=== PATIENT | male | born 1955 | race Caucasian/White ===

== ENCOUNTER 2020-11-04 10:52 | Outpatient (CLI) | payer MEDICARE, SELFPAY ==
[2020-11-04 11:33] LABS: Basophils Absolute Auto 0.1 K/mm3 (0.0-0.1); Basophils Percent Auto 1.1 % (0.2-1.2); Eosinophils Absolute Auto 0.2 K/mm3 (0-0.3); Eosinophils Percent Auto 2.8 % (0-4.4); Hematocrit 46.3 % (42.0-52.0); Hemoglobin 15.2 g/dL (14.0-18.0); Immature Granulocyte Absolute 0.02 K/mm3 (0.00-0.031); Immature Granulocyte Percent A 0.3 % (0-0.5); Lymphocytes Absolute Auto 1.38 K/mm3 (0.9-3.2); Lymphocytes Percent Auto 21.3 % (18.3-44.2); Mean Corpuscular HGB Conc 32.8 g/dl (32-36); Mean Corpuscular Hemoglobin 32.3 pg (26-34); Mean Corpuscular Volume 98.3 fl (80-100); Mean Platelet Volume 11.2 fl (7.4-10.4); Monocytes Absolute Auto 0.7 K/mm3 (0.1-0.6); Neutrophils Absolute Auto 4.1 K/mm3 (1.3-6.7); Neutrophils Percent Auto 63.5 % (45.5-73.1); Platelet Count Result 165 k/mm3 (150-375); Red Blood Count 4.71 M/mm3 (4.6-6.20); Red Cell Distribution Width 14.3 % (11.5-14.5); White Blood Count 6.5 K/mm3 (4.5-10.0)
[2020-11-04 11:42] LABS: Alanine Aminotransferase 32 U/L (4-50); Albumin Level 4.7 g/dL (3.5-5.1); Alkaline Phosphatase 64 U/L (38-126); Anion Gap 8 mmol/L (8-16); Aspartate Amino Transferase 31 U/L (17-59); Blood Urea Nitrogen 26 mg/dL (9-20); Calcium 9.6 mg/dL (8.4-10.2); Carbon Dioxide 29 mmol/L (22-30); Chloride 106 mmol/L (98-107); Cholesterol 114 mg/dL (0-200); Estimated Glomerular Filt Rate 41; Glucose 98 mg/dL (75-110); HDL Direct 35 mg/dL; Potassium 4.7 mmol/L (3.4-5.0); Sodium 143 mmol/L (137-145); Triglycerides 92 mg/dL (<150); Uric Acid 7.8 mg/dL (3.5-8.5)
[2020-11-04 11:53] LABS: LDL Cholesterol Direct 56 mg/dL
[2020-11-04 12:13] LABS: Prostate Specific Antigen 1.7 ng/mL (< OR = 4.0)
== END 2020-11-04 10:53 | disposition home or self-care (01) ==
PROVIDERS: PCP Family Medicine; Visit Provider Family Medicine
DX: E78.5 Hyperlipidemia, unspecified (principal); I10 Essential (primary) hypertension; Z12.5 Encounter for screening for malignant neoplasm of prostate; M10.00 Idiopathic gout, unspecified site
CPT/HCPCS: 36415; 80053; 80061; 84153; 84443; 84550; 85025; G0103

== ENCOUNTER 2021-04-06 11:00 | Outpatient (CLI) | payer MEDICARE, SELFPAY ==
[2021-04-06 11:43] LABS: Albumin Level 4.7 g/dL (3.5-5.1); Anion Gap 7 mmol/L (8-16); Blood Urea Nitrogen 23 mg/dL (9-20); Calcium 9.5 mg/dL (8.4-10.2); Carbon Dioxide 26 mmol/L (22-30); Chloride 106 mmol/L (98-107); Estimated Glomerular Filt Rate 40; Glucose 93 mg/dL (75-110); Phosphorus 3.7 mg/dL (2.5-4.5); Potassium 4.5 mmol/L (3.4-5.0); Sodium 139 mmol/L (137-145)
== END 2021-04-06 11:01 | disposition home or self-care (01) ==
LOC: ANHLAB 11:03
PROVIDERS: PCP Family Medicine
DX: N00.9 Acute nephritic syndrome with unspecified morphologic changes (principal)
CPT/HCPCS: 36415; 80069; 83735

== ENCOUNTER 2022-04-28 09:31 | Outpatient (CLI) | payer MEDICARE, SELFPAY ==
[2022-04-28 10:18] LABS: Basophils Absolute Auto 0.1 K/mm3 (0.0-0.1); Eosinophils Absolute Auto 0.2 K/mm3 (0-0.3); Eosinophils Percent Auto 3.6 % (0-4.4); Hematocrit 38.3 % (42.0-52.0); Hemoglobin 12.4 g/dL (14.0-18.0); Immature Granulocyte Absolute 0.01 K/mm3 (0.00-0.031); Immature Granulocyte Percent A 0.2 % (0-0.5); Lymphocytes Absolute Auto 1.15 K/mm3 (0.9-3.2); Lymphocytes Percent Auto 19.7 % (18.3-44.2); Mean Corpuscular HGB Conc 32.4 g/dl (32-36); Mean Corpuscular Hemoglobin 31.9 pg (26-34); Mean Corpuscular Volume 98.5 fl (80-100); Monocytes Absolute Auto 0.6 K/mm3 (0.1-0.6); Neutrophils Absolute Auto 3.8 K/mm3 (1.3-6.7); Neutrophils Percent Auto 64.5 % (45.5-73.1); Platelet Count Result 150 k/mm3 (150-375); Red Blood Count 3.89 M/mm3 (4.6-6.20); White Blood Count 5.8 K/mm3 (4.5-10.0)
[2022-04-28 10:26] LABS: Alanine Aminotransferase 27 U/L (6-50); Albumin Level 4.2 g/dL (3.5-5.1); Alkaline Phosphatase 60 U/L (38-126); Anion Gap 10 mmol/L (8-16); Aspartate Amino Transferase 29 U/L (17-59); Bilirubin,Total 0.8 mg/dL (0.2-1.3); Blood Urea Nitrogen 28 mg/dL (9-20); Calcium 9.2 mg/dL (8.4-10.2); Carbon Dioxide 24 mmol/L (22-30); Chloride 106 mmol/L (98-107); Cholesterol 80 mg/dL (0-200); Estimated Glomerular Filt Rate 43; Glucose 101 mg/dL (65-110); HDL Direct 26 mg/dL; Sodium 140 mmol/L (137-145); Triglycerides 50 mg/dL (<150)
[2022-04-28 10:37] LABS: LDL Cholesterol Direct 34 mg/dL
[2022-04-28 10:56] LABS: Prostate Specific Antigen 1.7 ng/mL (< OR = 4.0)
[2022-04-28 12:21] LABS: Vitamin D 25 Hydroxy 34.7 ng/mL
== END 2022-04-28 09:32 | disposition home or self-care (01) ==
LOC: ANHLAB 09:33
PROVIDERS: PCP Family Medicine; Visit Provider Family Medicine
DX: Z12.5 Encounter for screening for malignant neoplasm of prostate (principal); I11.0 Hypertensive heart disease with heart failure; E78.5 Hyperlipidemia, unspecified; E55.9 Vitamin D deficiency, unspecified; Z00.00 Encounter for general adult medical examination without abnormal findings
CPT/HCPCS: 36415; 80053; 80061; 82306; 84153; 84443; 85025; 85055; G0103

== ENCOUNTER 2023-01-17 10:48 | Outpatient (CLI) | payer MEDICARE, SELFPAY ==
[2023-01-17 11:28] LABS: Basophils Absolute Auto 0.1 K/mm3 (0.0-0.1); Basophils Percent Auto 1.1 % (0.2-1.2); Eosinophils Absolute Auto 0.2 K/mm3 (0-0.3); Eosinophils Percent Auto 2.7 % (0-4.4); Hematocrit 42.6 % (42.0-52.0); Hemoglobin 13.8 g/dL (14.0-18.0); Immature Granulocyte Absolute 0.02 K/mm3 (0.00-0.031); Immature Granulocyte Percent A 0.3 % (0-0.5); Lymphocytes Absolute Auto 1.21 K/mm3 (0.9-3.2); Mean Corpuscular HGB Conc 32.4 g/dl (32-36); Mean Corpuscular Hemoglobin 32.7 pg (26-34); Mean Corpuscular Volume 100.9 fl (80-100); Mean Platelet Volume 11.5 fl (7.4-10.4); Monocytes Absolute Auto 0.8 K/mm3 (0.1-0.6); Monocytes Percent Auto 10.6 % (2.6-8.5); Neutrophils Absolute Auto 4.9 K/mm3 (1.3-6.7); Neutrophils Percent Auto 68.3 % (45.5-73.1); Platelet Count Result 174 k/mm3 (150-375); Red Blood Count 4.22 M/mm3 (4.6-6.20); Red Cell Distribution Width 15.2 % (11.5-14.5); White Blood Count 7.1 K/mm3 (4.5-10.0)
[2023-01-17 11:35] LABS: Alanine Aminotransferase 46 U/L (6-50); Albumin Level 4.5 g/dL (3.5-5.1); Alkaline Phosphatase 75 U/L (38-126); Anion Gap 5 mmol/L (8-16); Aspartate Amino Transferase 34 U/L (17-59); Bilirubin,Total 1.3 mg/dL (0.2-1.3); Blood Urea Nitrogen 23 mg/dL (9-20); Calcium 9.2 mg/dL (8.4-10.2); Carbon Dioxide 29 mmol/L (22-30); Chloride 105 mmol/L (98-107); Cholesterol 112 mg/dL (0-200); Estimated Glomerular Filt Rate 43; Glucose 100 mg/dL (65-110); HDL Direct 27 mg/dL; Potassium 5.1 mmol/L (3.4-5.0); Sodium 139 mmol/L (137-145); Triglycerides 130 mg/dL (<150); Uric Acid 6.3 mg/dL (3.5-8.5)
[2023-01-17 11:46] LABS: LDL Cholesterol Direct 55 mg/dL
[2023-01-17 12:04] LABS: Prostate Specific Antigen 1.9 ng/mL (< OR = 4.0)
[2023-01-17 12:26] LABS: Vitamin D 25 Hydroxy 26.4 ng/mL
== END 2023-01-17 10:49 | disposition home or self-care (01) ==
LOC: ANHLAB 10:49
PROVIDERS: PCP Family Medicine; Visit Provider Family Medicine
DX: M10.00 Idiopathic gout, unspecified site (principal); E78.5 Hyperlipidemia, unspecified; Z12.5 Encounter for screening for malignant neoplasm of prostate; N18.31 Chronic kidney disease, stage 3a; I12.9 Hypertensive chronic kidney disease with stage 1 through stage 4 chronic kidney disease, or unspecified chronic kidney disease; E53.8 Deficiency of other specified B group vitamins; E55.9 Vitamin D deficiency, unspecified
CPT/HCPCS: 36415; 80053; 80061; 82306; 82607; 84153; 84443; 84550; 85025; G0103

== ENCOUNTER 2024-02-15 11:24 | Outpatient (CLI) | payer MEDICARE, SELFPAY ==
[2024-02-15 12:48] LABS: Hemoglobin 14.3 g/dL (14.0-18.0); Mean Corpuscular HGB Conc 32.5 g/dl (32-36); Mean Corpuscular Hemoglobin 32.2 pg (26-34); Mean Corpuscular Volume 99.1 fl (80-100); Mean Platelet Volume 12.1 fl (7.4-10.4); Platelet Count Result 170 k/mm3 (150-375); Red Blood Count 4.44 M/mm3 (4.6-6.20); Red Cell Distribution Width 14.4 % (11.5-14.5)
[2024-02-15 13:04] LABS: Alanine Aminotransferase 33 U/L (6-50); Albumin Level 4.6 g/dL (3.5-5.1); Alkaline Phosphatase 73 U/L (38-126); Anion Gap 8 mmol/L (4-12); Aspartate Amino Transferase 30 U/L (17-59); Bilirubin,Total 1.4 mg/dL (0.2-1.3); Blood Urea Nitrogen 20 mg/dL (9-20); Calcium 9.3 mg/dL (8.4-10.2); Carbon Dioxide 25 mmol/L (22-30); Chloride 109 mmol/L (98-107); Cholesterol 98 mg/dL (0-200); Estimated Glomerular Filt Rate 40; Glucose 89 mg/dL (65-110); HDL Direct 31 mg/dL; Potassium 4.1 mmol/L (3.4-5.0); Sodium 142 mmol/L (137-145); Triglycerides 91 mg/dL (<150)
[2024-02-15 13:15] LABS: LDL Cholesterol Direct 56 mg/dL
[2024-02-15 13:19] LABS: Vitamin D 25 Hydroxy 32.6 ng/mL
[2024-02-15 13:34] LABS: Prostate Specific Antigen 1.9 ng/mL (< OR = 4.0)
[2024-02-15 13:52] LABS: Hepatitis C Virus Antibody Negative (Negative)
== END 2024-02-15 11:25 | disposition home or self-care (01) ==
LOC: ANHLAB 11:25
PROVIDERS: PCP Family Medicine; Visit Provider Nurse Practitioner
DX: Z12.5 Encounter for screening for malignant neoplasm of prostate (principal); I50.9 Heart failure, unspecified; Z11.59 Encounter for screening for other viral diseases; E55.9 Vitamin D deficiency, unspecified
CPT/HCPCS: 36415; 80053; 80061; 82306; 84153; 84443; 85027; 86803; G0103

== ENCOUNTER 2025-02-13 08:39 | Outpatient (CLI) | payer MEDICARE, SELFPAY ==
--- OUTSIDE RECORDS SUMMARY | 2025-02-13 08:42 | XMS_ITS | Clinical Summary ---
Author Organization [facility] [place] [address] Address [address] [place] [address] Care Team Providers Care T[employer] Shop Manager Name Role Phone Fausto Díaz MD Primary Care Provider Allergies Active Allergy Reactions Criticality Noted Date Comments Penicillins Unknown Low Medications allopurinoL (ZYLOPRIM) 300 mg tablet Take 1 tablet (300 mg total) by mouth daily Active aspirin 81 mg enteric coated tablet Take 1 tablet (81 mg total) by mouth daily 30 tablet 11 11/03/2021 Active lisinopriL (PRINIVIL,ZESTRI L) 20 mg tablet Take 1 tablet (20 mg total) by mouth daily 02/14/2024 Active empagliflozin (Jardiance) 10 mg tablet Take 1 tablet (10 mg total) by mouth daily 30 tablet 11 03/20/2024 Active atorvastatin (LIPITOR) 40 mg tablet TAKE 1 TABLET EVERY DAY 90 tablet 3 05/02/2024 Active carvediloL (COREG) 6.25 mg tablet Take 1 tablet (6.25 mg total) by mouth 2 (two) times a day with meals 180 tablet 3 12/19/2024 Active Active Problems Problem Noted Date Diagnosed Date Automatic implantable cardiac defibrillator in s itu 11/03/2021 Overview (11/03/2021): Medtronic Dual ICD. Dx; ICM, PMVT, Afib. DOI 10/15/2014-[place]. [facility] remote monitoring. Renal insufficiency 11/12/2014 Overview (12/31/2016): Renal insufficiency History of coronary artery bypass surgery 2014 Overview (12/31/2016): S/P CABG x 3 History of heart valve repair 11/12/2014 Overview (12/31/2016): Status post mitral valve annuloplasty Atrial fibrillation 11/12/2014 Overview (12/31/2016): Atrial fibrillation Chronic coronary artery disease 09/05/2014 Mitral valve insufficiency 09/05/2014 Encounters Date Type Department Care Team Description 01/15/2025 8:45 AM CDT Ancillary Procedure [facility] [address] [place] [id number] Atrial fibrillation, unspecified type (HCC) (Primary Dx); Automatic implantable cardiac defibrillator in situ; Cardiomyopathy, ischemic from Last 3 Months Medical History Medical History Date Comments Hypertension Hypertension Family History Medical History Relation Name Comments Heart attack Brother Myocardial infa rction; Heart attack Father Myocardial infa rction; Cause of : Myocardial infarction Stroke Mother Stroke; Cause o f : Stroke Relation Name Status Comments Brother Father (Age 66) Mother (Age 79) Social History Tobacco Use Types Packs/Day Years Used Date Smoking Tobacco: Never Smokeless Tobacco: Never Tobacco Cessation:Counseling Given: Not Answered Alcohol Use Standard Drinks/Week Comments Yes 0 (1 standard drink = 0.6 oz pur e alcohol) Sex and Gender Information Value Date Recorded Sex Assigned at Not on file Legal Sex Male 8:56 PM [employer] Gender Identity Not on file Sexual Orientation Not on file Obstetrics History Last Filed Vital Signs Vital Sign Reading Time Taken Comments Blood Pressure 128/70 03/20/2024 10:25 AM CDT Pulse 64 03/20/2024 10:25 AM CDT Temperature - - Respiratory Rate - - Oxygen Saturation 96% 03/20/2024 10: 25 AM CDT Inhaled Oxygen Concentration - - Weight 112.3 kg (247 lb 9.6 oz) 024 10:25 AM CDT Height 180.3 cm (5' 11 ) 03/20/2024 10: 25 AM CDT Body Mass Index 34.53 03/20/2024 10:25 AM CDT Plan of Treatment Health Maintenance Due Date Last Done Comments Colon Cancer Screening-Colonoscopy 1954 Depression Screening 1954 Fall Risk Assessment 1955 Hepatitis C Screening 1954 DTaP/Tdap/Td Vaccine (1 - Tdap) 1965 Hepatitis B Screening 02/23/1972 Pneumococcal vaccine 65+ (1 of 2 - PCV) 1973 Zoster Vaccine (1 of 2) 02/23/2004 Well Visit 65+ 2019 Covid-19 Vaccine ( - season) 2024 10/04/2021, 12/29/2020, 12/01/2020 Influenza Vaccine (Season Ended) 2025 Procedures Procedure Name Priority Date/Time Associated Diagnosis Comments DEVICE CHECK - REMOTE Routine 01/15/2025 9:31 AM CDT Automatic implantable cardiac defibrillator in situ Cardiomyopathy, ischemic from Last 3 Months Results * DEVICE CHECK - REMOTE (01/15/2025 9:31 AM CDT) Anatomical Region Laterality Modality Other Narrative 01/17/2025 10:34 AM CDT Medtronic Dual ICD. Dx; ICM, PMVT, Afib. DOI 10/15/2014-[place]. [facility] remote monitoring. Routine AAI <> DDD ICD Remote. Transmission attached. Battery status 2.81 V, 3 months remaining battery life to LUZ. Stable Charge time and Shock impedance. Stable lead impedances, pacing, and sensing threshold. Presenting rhythm: /VS AP-16.0 %, DENTAL SURGERY DOCTOR-< 0.1 % (0) AT/AF episodes noted. (0) Ventricular tachy arrhythmias detected. Medication: ASA 81 mg, carvedilol 6.25 mg, lisinopril 20 mg Follow up: Office Pacemaker/ICD scheduled 04/23/25 [facility] remote 02/19/25 to assess battery status Jose Israel, RN He Sheets MD [facility] PROCEDURES F inal Result from Last 3 Months Insurance Care Teams Tire Shop Manager Relationship Specialty Start Date End Date Fausto Díaz MD PCP - General Family Practice 08/23/17
--- OUTSIDE RECORDS SUMMARY | 2025-02-13 08:42 | XMS_ITS | CONTINUITY OF CARE DOCUMENT ---
Author Name tino jiménez Address Unknown Organization [facility] Address [id number] [place] [address] [address] [place] [address] Phone [phone] Care Team Providers Care Plastic Sheets Supervisor Name Role Phone Hannah PAIGE, Malena Unavailable SANFORD SANTANA MD Unavailable [phone] Fausto Díaz MD Unavailable PROBLEMS Condition Status Date Provider Notes Status post DC AICD placement; Medtronic active 10/15 Tara Christy RN Cardiac arrest active Tara Christy RN Ventricular tachycardia, polymorphic/sustained active Tara Christy RN CAD - s/p artery bypass grafting & MVR active Tara Christy RN Cardiomyopathy, ischemic active Tara Cotto Family History of CVA or Stroke: active ? Edwar Morales DO ENCOUNTERS Date Type Provider Location Encounter Diagnosis - In-person encounter Office Visit Malena Young MD [facility] Office - In-person encounter Office Visit Jeremias Morales DO [facility] Office - In-person encounter Office Visit Jeremias Morales DO [facility] Office - In-person encounter Office Visit Jeremias Morales DO [facility] Office - In-person encounter Office Visit Jeremias Morales DO [facility] Office - In-person encounter Office Visit Jeremias Morales DO [facility] Family History of CVA or Stroke: VITAL SIGNS Date Observation Value Provider Body Mass Index (Ratio) 37.02 kg/m2 Mireya vann Tam blood pressure, diastolic 78 mm[Hg] Rosa nkLogic blood pressure, systolic 138 mm[Hg] Dora kLogic blood pressure, cuff size large Veto rri Teresitaseemaer blood pressure, diastolic 78 mm[Hg] Veto rri Alexandrenechantalelder blood pressure, systolic 138 mm[Hg] Kristi ri [facility] oxygen saturation, oximetry 95 % Anila Schroederryleechantalcora pulse rate 64 /min Anila Parekh [facility] respiratory rate E&M 18 /min Anila Saab jerrod weight E&M 258 [lb_av] Anila Ramirezwei [facility] height E&M 70 [in_i] Anila Alexandrekarolinajesús [facility] Body Mass Index (Ratio) 36.01 kg/m2 Curtis Watkins blood pressure, diastolic 62 mm[Hg] Ma rsha O'Yannick blood pressure, systolic 130 mm[Hg] Mar julianne O'Yannick blood pressure, resting Yes [facility] O'Yannick oxygen saturation, oximetry 97 % Ameena O'Yannick respiratory rate E&M 16 /min Ameean O'Yannick pulse rate 72 /min Ameena O'Yannick weight E&M 251 [lb_av] Ameena O'Yannick height E&M 70 [in_i] Ameena O'Yannick Body Mass Index (Ratio) 36.73 kg/m2 Curtis Watkins blood pressure, diastolic 82 mm[Hg] Rh ismael Rondon blood pressure, systolic 118 mm[Hg] Rho nda Nela blood pressure, cuff size regular Rh ismael Rondon oxygen saturation, oximetry 98 % Michelle Rondon respiratory rate E&M 18 /min Michelle Nela pulse rate 71 /min Michelle Nela weight E&M 256 [lb_av] Michelle Nela height E&M 70 [in_i] Michelle Nela Body Mass Index (Ratio) 36.15 kg/m2 Jackie Shah NP blood pressure, cuff size large Rh ismael Nela blood pressure, diastolic 79 mm[Hg] Rh ismael Nela blood pressure, systolic 125 mm[Hg] Rho poncho Nela oxygen saturation, oximetry 96 % Michelle Nela pulse rate 67 /min Michellefrederick Rondon weight E&M 252 [lb_av] Michelle Nela height E&M 70 [in_i] Michellefrederick Rondon Body Mass Index (Ratio) 36.44 kg/m2 Jackie Shah NP blood pressure, cuff size regular Evelynlobo Fuentes blood pressure, diastolic 80 mm[Hg] Britt Fuentes blood pressure, systolic 122 mm[Hg] Romeo Fuentes oxygen saturation, oximetry 95 % Nisha Fuentes respiratory rate E&M 16 /min Nisha Fuentes pulse rate 64 /min Nisha Fuentes weight E&M 254 [lb_av] Nisha Fuentes height E&M 70 [in_i] Nisha Fuentes blood pressure, diastolic 70 mm[Hg] Andrae Fierro blood pressure, systolic 114 mm[Hg] Isaiah Fierro pulse rate 81 /min Coby Fierro oxygen saturation, oximetry 98 % Coby Fierro respiratory rate E&M 16 /min Coby Fierro Body Mass Index (Ratio) 33.72 kg/m2 Kain Fierro weight E&M 235 [lb_av] Coby Fierro height E&M 70 [in_i] Coby Fierro ALLERGIES Allergy Name Onset Date Reaction Criticality Status PCN. High Criticality active HISTORY OF MEDICATION USE Medication Status Instructions Dates Provider Indications Com ments Colcrys 0.6 mg tablet active 1 tablet by mouth twice a day as needed Ameena Sosa #60, 30 days supply, Filled 06/30/2020 COLCHICINE 0.6 MG ORAL CAPSULE completed take one tab po bid - Michelle Rondon allopurinol 300 mg tablet active Take 1 tablet by mouth once a day Coby Fierro lisinopril 20 mg tablet active 1 tablet by mouth once a day Ameena Sosa AMIODARONE HCL 200 MG ORAL TABLET completed ONE TAB. DAILY - Coby Fierro SPIRONOLACTONE 25 MG ORAL TABLET completed ONE TAB. DAILY - Coby Fierro FUROSEMIDE 40 MG ORAL TABLET completed once daily - Michelle Rondon carvedilol 6.25 mg tablet active 1 tablet by mouth twice a day Ameena Sosa atorvastatin 20 mg tablet active 1 tablet by mouth once a day Ameena Sosa aspirin 325 mg tablet active 1 tablet by mouth once a day Nela Ludwig SOCIAL HISTORY Date Observation Value Provider social history reviewed E&M revi ewed - no changes required Malena Young MD smoking status Never smoker Anila fernandes social history E&M S moking History: P [place] has never smoked. Jeremias Morales DO social history reviewed E&M revi ewed - no changes required Jeremias Morales DO smoking status Never smoker Jeremias huff DO smoking status Never smoker Jeremias huff DO social history E&M S moking History: P atient has never smoked. Jeremias Morales DO social history reviewed E&M revi ewed - no changes required Jeremias Morales DO smoking status Never smoker Michelle Rondon number of grandchildren Jeremias Morales Baldemar O Howie Shah NP smoking status Never smoker Nisha Fuentes social history E&M S moking History: Bill ramirez has never smoked. Jeremias Morales DO social history reviewed E&M revi ewed - no changes required Jeremias Morales DO smoking status Never smoker Coby Fierro FUNCTIONAL STATUS Date Observation Value Provider HRA, CV Assess/Plan, Angina (inactive) Management Plan continue current therapy Jeremias Morales HRA, CV Assess/Plan, Angina (inactive) Management Plan continue current therapy Jeremias Morales HRA, CV Assess/Plan, Angina (inactive) Management Plan continue current therapy Howie Shah NP HRA, CV Assess/Plan, Angina (inactive) Management Plan continue current therapy Howie Shah NP FAMILY HISTORY Family Member Condition Father Family History of Co ronary Artery Disease: Mother Family History of Di abetes: Mother Family History of CV A or Stroke: INSURANCE PROVIDERS Payer name Policy type / Coverage type Person [facility] republican ID [employer] GOLD PLUS O O [id number] ADVANCE DIRECTIVES Name Date DISCUSSED - NO DECISION MADE TREATMENT PLAN Date Name Performer [id number], H is updated medication list for this problem includes: Lisinopril 20 Mg Oral Tablet (Lisinopril) ..... One tab. daily Carvedilol 6.25 Mg Oral Tablet (Carvedilol) ..... One tab. twice daily Aspirin 325 Mg Oral Tablet (Aspirin) ..... One tab. daily Orders: E KG (CPT-51994) 9 9215 HIGH 40-54min (CPT-92651) S chedule Followup (*) Malena Young MD [id number],B, H is updated medication list for this problem includes: Lisinopril 20 Mg Oral Tablet (Lisinopril) ..... One tab. daily Carvedilol 6.25 Mg Oral Tablet (Carvedilol) ..... One tab. twice daily Aspirin 325 Mg Oral Tablet (Aspirin) ..... One tab. daily Orders: 9 9215 HIGH 40-54min (CPT-98860) S chedule Followup (*) Malena Young MD Electrophysiology: H is updated medication list for this problem includes: Lisinopril 20 Mg Oral Tablet (Lisinopril) ..... One tab. daily Carvedilol 6.25 Mg Oral Tablet (Carvedilol) ..... One tab. twice daily Aspirin 325 Mg Oral Tablet (Aspirin) ..... One tab. daily Orders: E KG (CPT-26128) 9 9215 HIGH 40-54min (CPT-51215) S chedule Followup (*) Malena Young MD Electrophysiology: H is updated medication list for this problem includes: Lisinopril 20 Mg Oral Tablet (Lisinopril) ..... One tab. daily Carvedilol 6.25 Mg Oral Tablet (Carvedilol) ..... One tab. twice daily Aspirin 325 Mg Oral Tablet (Aspirin) ..... One tab. daily Orders: 9 9215 HIGH 40-54min (CPT-65760) S chedule Followup (*) Malena Young MD Electrophysiology: F ollowed by Dr Santana s /p ICD [facility] Electrophysiology: S /P ICD 2014 n o recurent arrhythmia. N o shocks. [facility] Electrophysiology:no rmal function [facility] Electrophysiology:s/ p dc icd n o shocks/ therapies, palps, or tachycardia. [facility] Electrophysiology:no rmal function [facility] Electrophysiology:Fo llowed by Dr Santana s /p ICD [facility] Electrophysiology:S/ P ICD 2014 n o recurent arrhythmia. N o shocks. [facility] Electrophysiology: p er Dr Kortney Denise [facility] Electrophysiology:s/p dc icd Nabila Shah PRE SALES TECHNICAL ENGINEER Electrophysiology: n ormal function Howie Shah PRE SALES TECHNICAL ENGINEER Electrophysiology - [facility] letter sent: p er Dr Kortney Dahled Pablo PRE SALES TECHNICAL ENGINEER Electrophysiology - [facility] letter sent:normal function Howie Shah PRE SALES TECHNICAL ENGINEER EP:per Dr Kortney Morales DO EP:normal function, no vt Jeremias Morales DO EP:S/P ICD n o recurent arrhythmia. Jeremias Morales DO HISTORY OF PROCEDURES Procedure Date Procedure Name Provider Procedure Notes S tatus Schedule Followup Malena gordon MD fu in 12 months completed EKG Malena chaidez MD completed EKG Jeremias Morales DO completed EKG Jeremias Kleberg completed ICM Interrogation, Remote (Prof) Jeremias Kleberg DO INTERROGATION EVAL REMOTE </30 D CV MNTR SYS completed AICD Interrogation, Remote (Tech) Jeremias Kleberg DO INTERROGATION REMOTE </90 D HEALTH EDITOR REVIEW completed AICD Interrogation, Remote (Prof) Jeremias Kleberg DO INTERROGATION EVAL REMOTE </90 D 1/2/> LD CVDFB completed ICM Interrogation, Remote (Prof) Jeremias Kleberg DO INTERROGATION EVAL REMOTE </30 D CV MNTR SYS completed AICD Interrogation, Remote (Tech) Jeremias Kleberg DO INTERROGATION REMOTE </90 D HEALTH EDITOR REVIEW completed AICD Interrogation, Remote (Prof) Jeremias Kleberg DO INTERROGATION EVAL REMOTE </90 D 1/2/> LD CVDFB completed ICM Interrogation, Remote (Prof) Jeremias Kleberg DO INTERROGATION EVAL REMOTE </30 D CV MNTR SYS completed ICM Interrogation, Remote (Tech) Jeremias Kleberg DO INTERROGATION EVAL REMOTE </30 D TECH REVIEW completed ICM Interrogation, Remote (Prof) Jeremias Kleberg DO INTERROGATION EVAL REMOTE </30 D CV MNTR SYS completed ICM Interrogation, Remote (Tech) Jeremias Kleberg DO INTERROGATION EVAL REMOTE </30 D TECH REVIEW completed ICM Interrogation, Remote (Prof) Jeremias Kleberg DO INTERROGATION EVAL REMOTE </30 D CV MNTR SYS completed AICD Interrogation, Remote (Tech) Jeremias Kleberg DO INTERROGATION REMOTE </90 D HEALTH EDITOR REVIEW completed AICD Interrogation, Remote (Prof) Jeremias Kleberg DO INTERROGATION EVAL REMOTE </90 D 1/2/> LD CVDFB completed ICM Interrogation, Remote (Prof) Jeremias Kleberg DO INTERROGATION EVAL REMOTE </30 D CV MNTR SYS completed ICM Interrogation, Remote (Tech) Jeremias Kleberg DO INTERROGATION EVAL REMOTE </30 D TECH REVIEW completed ICM Interrogation, Remote (Prof) Jeremias Kleberg DO INTERROGATION EVAL REMOTE </30 D CV MNTR SYS completed ICM Interrogation, Remote (Tech) Jeremias Kleberg DO INTERROGATION EVAL REMOTE </30 D TECH REVIEW completed ICM Interrogation, Remote (Prof) Jeremias Kleberg DO INTERROGATION EVAL REMOTE </30 D CV MNTR SYS completed AICD Interrogation, Remote (Tech) Jeremias Kleberg DO INTERROGATION REMOTE </90 D HEALTH EDITOR REVIEW completed AICD Interrogation, Remote (Prof) Jeremias Kleberg DO INTERROGATION EVAL REMOTE </90 D 1/2/> LD CVDFB completed ICM Interrogation, Remote (Prof) Jeremias Kleberg DO INTERROGATION EVAL REMOTE </30 D CV MNTR SYS completed ICM Interrogation, Remote (Tech) Jeremias Kleberg DO INTERROGATION EVAL REMOTE </30 D TECH REVIEW completed ICM Interrogation, Remote (Prof) Jeremias Kleberg DO INTERROGATION EVAL REMOTE </30 D CV MNTR SYS completed ICM Interrogation, Remote (Tech) Jeremias Kleberg DO INTERROGATION EVAL REMOTE </30 D TECH REVIEW completed Schedule ICD Check Jeremias Tamaroa ck DO completed Schedule Followup Jeremias Glascoc k DO completed EKG Howie Hu PRE SALES TECHNICAL ENGINEER completed ICM Interrogation, Remote (Prof) Jeremias Kleberg DO INTERROGATION EVAL REMOTE </30 D CV MNTR SYS completed ICM Interrogation, Remote (Tech) Jeremias Kleberg DO INTERROGATION EVAL REMOTE </30 D TECH REVIEW completed ICM Interrogation, Remote (Prof) Jeremias Kleberg DO INTERROGATION EVAL REMOTE </30 D CV MNTR SYS completed AICD Interrogation, Remote (Tech) Jeremias Kleberg DO INTERROGATION REMOTE </90 D HEALTH EDITOR REVIEW completed AICD Interrogation, Remote (Prof) Jeremias Kleberg DO INTERROGATION EVAL REMOTE </90 D 1/2/> LD CVDFB completed ICM Interrogation, Remote (Prof) Jeremias Kleberg DO INTERROGATION EVAL REMOTE </30 D CV MNTR SYS completed ICM Interrogation, Remote (Tech) Jeremias Kleberg DO INTERROGATION EVAL REMOTE </30 D TECH REVIEW completed ICM Interrogation, Remote (Prof) Jeremias Kleberg DO INTERROGATION EVAL REMOTE </30 D CV MNTR SYS completed ICM Interrogation, Remote (Tech) Jeremias Kleberg DO INTERROGATION EVAL REMOTE </30 D TECH REVIEW completed ICM Interrogation, Remote (Prof) Jeremias Kleberg DO INTERROGATION EVAL REMOTE </30 D CV MNTR SYS completed AICD Interrogation, Remote (Tech) Jeremias Kleberg DO INTERROGATION REMOTE </90 D HEALTH EDITOR REVIEW completed AICD Interrogation, Remote (Prof) Jeremias Kleberg DO INTERROGATION EVAL REMOTE </90 D 1/2/> LD CVDFB completed ICM Interrogation, Remote (Prof) Jeremias Kleberg DO INTERROGATION EVAL REMOTE </30 D CV MNTR SYS completed ICM Interrogation, Remote (Tech) Jeremias Kleberg DO INTERROGATION EVAL REMOTE </30 D TECH REVIEW completed ICM Interrogation, Remote (Prof) Jeremias Kleberg DO INTERROGATION EVAL REMOTE </30 D CV MNTR SYS completed ICM Interrogation, Remote (Tech) Jeremias Kleberg DO INTERROGATION EVAL REMOTE </30 D TECH REVIEW completed ICM Interrogation, Remote (Prof) Jeremias Kleberg DO INTERROGATION EVAL REMOTE </30 D CV MNTR SYS completed AICD Interrogation, Remote (Tech) Jeremias Kleberg DO INTERROGATION REMOTE </90 D HEALTH EDITOR REVIEW completed AICD Interrogation, Remote (Prof) Jeremias Kleberg DO INTERROGATION EVAL REMOTE </90 D 1/2/> LD CVDFB completed ICM Interrogation, Remote (Prof) Jeremias Kleberg DO INTERROGATION EVAL REMOTE </30 D CV MNTR SYS completed ICM Interrogation, Remote (Tech) Jeremias Kleberg DO INTERROGATION EVAL REMOTE </30 D TECH REVIEW completed ICM Interrogation, Remote (Prof) Jeremias Kleberg DO INTERROGATION EVAL REMOTE </30 D CV MNTR SYS completed ICM Interrogation, Remote (Tech) Jeremias Kleberg DO INTERROGATION EVAL REMOTE </30 D TECH REVIEW completed Schedule ICD Check Jeremias Sonido ck DO completed Schedule Followup Jeremias Glascoc k DO completed EKG Jeremias Kleberg DO completed SNOMED-CT: [id number] Current Medications Documented Jeremias Kleberg DO completed ICM Interrogation, Remote (Prof) Jeremias Kleberg DO INTERROGATION EVAL REMOTE </30 D CV MNTR SYS completed ICM Interrogation, Remote (Tech) Jeremias Kleberg DO INTERROGATION EVAL REMOTE </30 D TECH REVIEW completed ICM Interrogation, Remote (Prof) Jeremias Kleberg DO INTERROGATION EVAL REMOTE </30 D CV MNTR SYS completed ICM Interrogation, Remote (Tech) Jeremias Kleberg DO INTERROGATION EVAL REMOTE </30 D TECH REVIEW completed ICM Interrogation, Remote (Prof) Jeremias Kleberg DO INTERROGATION EVAL REMOTE </30 D CV MNTR SYS completed AICD Interrogation, Remote (Tech) Jeremias Kleberg DO INTERROGATION REMOTE </90 D HEALTH EDITOR REVIEW completed AICD Interrogation, Remote (Prof) Jeremias Kleberg DO INTERROGATION EVAL REMOTE </90 D 1/2/> LD CVDFB completed ICM Interrogation, Remote (Prof) Jeremias Kleberg DO INTERROGATION EVAL REMOTE </30 D CV MNTR SYS completed ICM Interrogation, Remote (Tech) Jeremias Kleberg DO INTERROGATION EVAL REMOTE </30 D TECH REVIEW completed ICM Interrogation, Remote (Prof) Jeremias Kleberg DO INTERROGATION EVAL REMOTE </30 D CV MNTR SYS completed ICM Interrogation, Remote (Tech) Jeremias Kleberg DO INTERROGATION EVAL REMOTE </30 D TECH REVIEW completed ICM Interrogation, Remote (Prof) Jeremias Kleberg DO INTERROGATION EVAL REMOTE </30 D CV MNTR SYS completed AICD Interrogation, Remote (Tech) Jeremias Kleberg DO INTERROGATION REMOTE </90 D HEALTH EDITOR REVIEW completed AICD Interrogation, Remote (Prof) Jeremias Kleberg DO INTERROGATION EVAL REMOTE </90 D 1/2/> LD CVDFB completed ICM Interrogation, Remote (Prof) Jeremias Kleberg DO INTERROGATION EVAL REMOTE </30 D CV MNTR SYS completed ICM Interrogation, Remote (Tech) Jeremias Kleberg DO INTERROGATION EVAL REMOTE </30 D TECH REVIEW completed ICM Interrogation, Remote (Prof) Jeremias Kleberg DO INTERROGATION EVAL REMOTE </30 D CV MNTR SYS completed ICM Interrogation, Remote (Tech) Jeremias Kleberg DO INTERROGATION EVAL REMOTE </30 D TECH REVIEW completed ICM Interrogation, Remote (Prof) Jeremias Kleberg DO INTERROGATION EVAL REMOTE </30 D CV MNTR SYS completed AICD Interrogation, Remote (Tech) Jeremias Kleberg DO INTERROGATION REMOTE </90 D HEALTH EDITOR REVIEW completed AICD Interrogation, Remote (Prof) Jeremias Kleberg DO INTERROGATION EVAL REMOTE </90 D 1/2/> LD CVDFB completed ICM Interrogation, Remote (Prof) Jeremias Kleberg DO INTERROGATION EVAL REMOTE </30 D CV MNTR SYS completed ICM Interrogation, Remote (Tech) Jeremias Kleberg DO INTERROGATION EVAL REMOTE </30 D TECH REVIEW completed ICM Interrogation, Remote (Prof) Jeremias Kleberg DO INTERROGATION EVAL REMOTE </30 D CV MNTR SYS completed ICM Interrogation, Remote (Tech) Jeremias Kleberg DO INTERROGATION EVAL REMOTE </30 D TECH REVIEW completed EKG Jeremias Kleberg DO completed SNOMED-CT: [id number] Current Medications Documented Jeremias Kleberg DO completed ICM Interrogation, Remote (Prof) Jeremias Kleberg DO INTERROGATION EVAL REMOTE </30 D CV MNTR SYS completed AICD Interrogation, Remote (Tech) Jeremias Kleberg DO INTERROGATION REMOTE </90 D HEALTH EDITOR REVIEW completed AICD Interrogation, Remote (Prof) Jeremias Kleberg DO INTERROGATION EVAL REMOTE </90 D 1/2/> LD CVDFB completed ICM Interrogation, Remote (Prof) Jeremias Kleberg DO INTERROGATION EVAL REMOTE </30 D CV MNTR SYS completed ICM Interrogation, Remote (Tech) Jeremias Kleberg DO INTERROGATION EVAL REMOTE </30 D TECH REVIEW completed ICM Interrogation, Remote (Prof) Jeremias Kleberg DO INTERROGATION EVAL REMOTE </30 D CV MNTR SYS completed ICM Interrogation, Remote (Tech) Jeremias Kleberg DO INTERROGATION EVAL REMOTE </30 D TECH REVIEW completed ICM Interrogation, Remote (Prof) Jeremias Kleberg DO INTERROGATION EVAL REMOTE </30 D CV MNTR SYS completed AICD Interrogation, Remote (Tech) Jeremias Morales DO INTERROGATION REMOTE </90 D HEALTH EDITOR REVIEW completed AICD Interrogation, Remote (Prof) Jeremias Leoscock DO INTERROGATION EVAL REMOTE </90 D 1/2/> LD CVDFB completed ICM Interrogation, Remote (Prof) Jeremias Headck DO INTERROGATION EVAL REMOTE </30 D CV MNTR SYS completed ICM Interrogation, Remote (Tech) Jeremias Headck DO INTERROGATION EVAL REMOTE </30 D TECH REVIEW completed ICM Interrogation, Remote (Prof) Jeremias Headck DO INTERROGATION EVAL REMOTE </30 D CV MNTR SYS completed ICM Interrogation, Remote (Tech) Jeremias Leoscock DO INTERROGATION EVAL REMOTE </30 D TECH REVIEW completed
--- OUTSIDE RECORDS SUMMARY | 2025-02-13 08:42 | XMS_ITS | Referral Summary ---
Author Organization [facility] [address] Address [address] [place] [address] Care Team Providers Care Director Process Improvement Name Role Phone Fausto Díaz MD Primary Care Provider Encounters Date Type Department Care Team Description 01/15/2025 8:45 AM CDT Ancillary Procedure [facility] Cardiology [address] [place] [id number] Atrial fibrillation, unspecified type (HCC) (Primary Dx); Automatic implantable cardiac defibrillator in situ; Cardiomyopathy, ischemic from Last 3 Months Allergies Active Allergy Reactions Criticality Noted Date [...] Dual ICD. Dx; ICM, PMVT, Afib. DOI 10/15/2014-[place]ascock. [place] remote monitoring. Renal insufficiency 11/12/2014 Overview (12/31/2016): Renal insufficiency History of coronary artery bypass surgery 2014 Overview (12/31/2016): S/P CABG x 3 History of heart valve repair 11/12/2014 Overview (12/31/2016): Status post mitral valve annuloplasty Atrial fibrillation 11/12/2014 Overview (12/31/2016): Atrial fibrillation Chronic coronary artery disease 09/05/2014 Mitral valve insufficiency 09/05/2014 Social History Tobacco Use Types Packs/Day Years Used Date Smoking Tobacco: Never Smokeless Tobacco: Never Tobacco Cessation:Counseling Given: Not Answered Alcohol Use Standard Drinks/Week Comments Yes 0 (1 standard drink = 0.6 oz pur e alcohol) Sex and Gender Information Value Date Recorded Sex Assigned at Not on file 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 Dx; ICM, PMVT, Afib. DOI 10/15/2014-Carmen. [facility] remote monitoring. Routine AAI <> DDD ICD Remote. Transmission attached. Battery status 2.81 V, 3 months remaining battery life to LUZ. Stable Charge time and Shock impedance. Stable lead impedances, pacing, and sensing threshold. Presenting rhythm: /VS AP-16.0 %, VP PROJECT-< 0.1 % (0) AT/AF episodes noted. (0) Ventricular tachy arrhythmias detected. Medication: ASA 81 mg, carvedilol 6.25 mg, lisinopril 20 mg Follow up: Office Pacemaker/ICD scheduled 04/23/25 [facility] remote 02/19/25 to assess battery status Jose Israel RN He Sheets MD [facility] CARDIAC SERVICES PROCEDURES F inal Result from Last 3 Months Insurance [email or web address] MEDICARE O [employer] MEDICARE HMO Care Teams Director Process Improvement Relationship Specialty Start Date End Date Fausto Díaz MD PCP - General Family Practice 08/23/17
--- OUTSIDE RECORDS SUMMARY | 2025-02-13 08:42 | XMS_ITS | Patient Health Record ---
Author Organization [facility] Address [address] [place], [place] [id number] Care Team Providers Care Assistance Coordinator Name Role Phone shanel asha Primary Care Provider Tej espinosa Rex Garvey Unavailable [phone] Allergies Allergen (clinical drug ingredient) Drug/Non Drug Allergy documented on EMR Reaction Allergy Type Onset Date Status penicillin Unknown Drug Allergy Active Reason For Referral No Information Medications Medication SIG (Take, Route, Frequency, Duration) Notes Start Date End Date Status Aspirin 81 81 MG 1 tablet Orally Once a day for 30 day(s) Active Atorvastatin Calcium 40 MG 1 tablet Orally Once a day Active Coreg 6.25 MG 1 tablet with food Orally Twice a day Active Lisinopril 20 MG 1 tablet Orally Once a day Active Allopurinol 300 MG 1 tablet Orally Once a day Active Aspirin 325 MG 1 tablet Orally Once a day Not-Taking Colchicine 0.6 MG Orally as needed No t-Taking Furosemide 40 MG 1 tablet Orally Once a day Not-Taking Naproxen 250 MG 1 tablet Orally ever y day Not-Taking Problems Problem Type SNOMED Code ICD Code Onset Dates Problem Status W/U Status Risk Notes Problem 81786167 Essential (primary) hypertension (401.9) Active confirmed Low Problem 897058168 Acute renal insufficiency (N28.9) Active confirmed Problem Pulmonary hypertension (00878455) Pulmonary hypertension (I27.2) Active confirmed Problem 357902393 Obesity (E66.9) Active confirmed Problem 65925411 Cardiovascular disease (I25.10) Active confirmed Low Problem 15624122 Acute nephritis NOS (N00.9) Active confirmed Low Plan Of Treatment Pending Test Test Name Order Date Renal Panel (10) 04/10/2020 Renal Panel (10) 05/04/2022 Magnesium 05/04/2022 Magnesium 04/10/2020 Magnesium 11/02/2018 Magnesium 04/01/2016 Magnesium 09/30/2016 Magnesium 09/29/2017 Renal Panel 11/02/2018 Renal Panel 09/29/2017 Renal Panel 09/30/2016 Renal Panel 11/26/2014 Renal Panel 04/01/2016 Insurance Providers Payer Name Payer Address Payer Phone Subscriber Number Group Number Insured Name Patient Relationship to Insured Coverage Start Date Coverage End Date [employer] [address] [address] [place] [phone] [id number] Tae Angulo Self - patient is the insured Medical (General) History Medical History History ICD Code HTN CAD EF 40-45% Pulm HTN obesity Surgical History Surgery Date(Month/Year) CABG
[2025-02-13 09:03] LABS: Basophils Absolute Auto 0.1 K/mm3 (0.0-0.1); Basophils Percent Auto 1.1 % (0.2-1.2); Eosinophils Absolute Auto 0.2 K/mm3 (0-0.3); Eosinophils Percent Auto 2.9 % (0-4.4); Hematocrit 41.5 % (42.0-52.0); Hemoglobin 13.5 g/dL (14.0-18.0); Immature Granulocyte Absolute 0.01 K/mm3 (0.00-0.031); Immature Granulocyte Percent A 0.2 % (0-0.5); Lymphocytes Absolute Auto 1.17 K/mm3 (0.9-3.2); Lymphocytes Percent Auto 18.5 % (18.3-44.2); Mean Corpuscular HGB Conc 32.5 g/dl (32-36); Mean Corpuscular Hemoglobin 32.1 pg (26-34); Mean Corpuscular Volume 98.6 fl (80-100); Mean Platelet Volume 11.7 fl (7.4-10.4); Monocytes Absolute Auto 0.7 K/mm3 (0.1-0.6); Monocytes Percent Auto 10.8 % (2.6-8.5); Neutrophils Absolute Auto 4.2 K/mm3 (1.3-6.7); Neutrophils Percent Auto 66.5 % (45.5-73.1); Platelet Count Result 147 k/mm3 (150-375); Red Blood Count 4.21 M/mm3 (4.6-6.20); Red Cell Distribution Width 15.1 % (11.5-14.5); White Blood Count 6.3 K/mm3 (4.5-10.0)
[2025-02-13 09:23] LABS: Hemoglobin A1C 5.5 % (<5.7)
[2025-02-13 09:48] LABS: Alanine Aminotransferase 36 U/L (6-50); Albumin Level 4.4 g/dL (3.5-5.1); Alkaline Phosphatase 60 U/L (38-126); Anion Gap 8 mmol/L (4-12); Aspartate Amino Transferase 38 U/L (17-59); Bilirubin,Total 1.2 mg/dL (0.2-1.3); Blood Urea Nitrogen 25 mg/dL (9-20); Calcium 9.3 mg/dL (8.4-10.2); Carbon Dioxide 27 mmol/L (22-30); Chloride 107 mmol/L (98-107); Cholesterol 102 mg/dL (0-200); Estimated Glomerular Filt Rate 35; Glucose 107 mg/dL (65-110); HDL Direct 33 mg/dL; Potassium 4.8 mmol/L (3.4-5.0); Sodium 142 mmol/L (137-145); Triglycerides 107 mg/dL (<150)
[2025-02-13 09:58] LABS: LDL Cholesterol Direct 39 mg/dL
[2025-02-13 10:10] LABS: Parathyroid Intact 43.2 pg/mL (14.5-75.2)
[2025-02-13 10:15] LABS: Vitamin D 25 Hydroxy 22.2 ng/mL
[2025-02-13 10:18] LABS: Prostate Specific Antigen 1.6 ng/mL (< OR = 4.0)
== END 2025-02-13 08:40 | disposition home or self-care (01) ==
LOC: ANHLAB 08:40
PROVIDERS: PCP Family Medicine; Visit Provider Family Medicine
DX: Z12.5 Encounter for screening for malignant neoplasm of prostate (principal); E78.5 Hyperlipidemia, unspecified; I12.9 Hypertensive chronic kidney disease with stage 1 through stage 4 chronic kidney disease, or unspecified chronic kidney disease; N18.32 Chronic kidney disease, stage 3b; R73.9 Hyperglycemia, unspecified; E55.9 Vitamin D deficiency, unspecified; E53.8 Deficiency of other specified B group vitamins
CPT/HCPCS: 36415; 80053; 80061; 82306; 82607; 83036; 83970; 84153; 84443; 85025; G0103